=== PATIENT | male | born 1970 | race Caucasian/White ===

== ENCOUNTER → 2018-12-23 | Outpatient (REF) | payer OTHER ==
[~2018-12-23] MED LIST: AMO500 PO; ARIP2TAB9 PO; IBUP-1618 PO; IBUP1TAB PO; METHY10 PO; OXYC-868 PO; [UNRECOGNIZED DRUG - CODE] PO
== END ==
LOC: RESP 01:01 → EDSTATUS 10:00
PROVIDERS: ATTEND Nurse Practitioner
DX: M79.602 Pain in left arm (principal); M54.2 Cervicalgia; I25.2 Old myocardial infarction
CPT/HCPCS: 93017; 93350